=== PATIENT | female | born 1960 | race Caucasian/White ===

== ENCOUNTER 2018-05-08 14:09 | Emergency (ER) | payer MEDICARE, OTHER, SELFPAY ==
[2018-05-08 14:14] VITALS: BP 126/76; PULSE 59; RESP 18; TEMP 36.5; O2SAT 100
[2018-05-08 14:35] VITALS: BP 123/83; PULSE 57; RESP 18; TEMP 36.9; O2SAT 99
--- NOTE | 2018-05-08 14:37 | W.ED.GENAD ---
Discharge Plan Disposition Patient Disposition: HOME Condition: Stable Discharge Details Chief Complaint: Chest Pain Clinical Impression: Chest pain, Axillary lymphadenopathy Primary Care Provider: Jennifer Castillo ED Provider: Krysten Damico Home Meds and New Rx's Prescriptions: Continue duloxetine [Cymbalta] 60 mg Capsule,Delayed Release(Dr/Ec) 60 mg PO DAILY AM RF: 0 ibuprofen 800 mg Tablet 800 mg PO RF: 0 methylphenidate HCl 10 mg Tablet 10 mg PO DAILY RF: 0 omeprazole 20 mg Tablet,Delayed Release (Dr/Ec) RF: 0 Discharge Instructions Instructions: Chest Pain (ED) Additional Instructions: Please return immediately to the emergency department if you develop any new or worsening symptoms or if you become otherwise concerned. It is extremely important that you make an appointment to be seen by your primary care doctor within the next week in follow-up this visit. If you change your mind and you would like us to schedule a stress test, please call [phone]. Referrals: Jennifer Castillo [Primary Care Provider] - Discharge Data Discharge Date/Time-TO BE ENTERED AT DEPARTURE: 05/08/18 21:04 Medical Decision Making Karen Forbes is a 57-year-old woman with history of breast cancer 12 years in the past without sequelae who preseneted to the emergency department with left sided chest pain since yesterday, nonexertional, nonpleuritic, non-positional. On exam patient is very well and nontoxic-appearing. Chest is nontender. She has a negative cardiopulmonary exam. Concern for pericarditis versus PE versus GERD versus musculoskeletal versus other, doubt occult pneumonia, doubt ACS. Exam/history not consistent with acute emergent aortic pathology. Plan for EKG, chest x-ray, screening labs, IV, telemetry. Will monitor and reassess. EKG, CXR okay. D-dimer elevated, plan for CT chest. 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 Discussed importance of outpatient follow-up with regular this finding with patient at length. Repeat EKG, repeat troponin negative. Patient has been pain-free during this emergency department encounter. Lengthy discussion with patient regarding return to emergency department precautions and importance of outpatient follow-up with her PCP, plan for stress test within 72 hours. Patient reports that she does not want to undergo a stress test right now. She states that she would rather have it in a few months when her life is ess hectic. Lengthy discussion with patient regarding risks of not undergoing stress test including and permanent disability. Patient verbalizes understanding, but would still prefer to wait. We will not schedule stress test this at this time. Discussed importance of following up with her primary care doctor within the next 1-2 weeks. She is amenable to the plan Medical Records Medical records reviewed: Yes I reviewed the patient's medical records. Imaging Data Radiologic Study: Attestation: I personally reviewed and interpreted this imaging study as follows: Radiologist's impression: PA AND LATERAL CHEST: The heart is normal in size. The lungs are clear. The mediastinal structures and pleura appear intact. CONCLUSION: Normal chest. CT Chest: FINDINGS: Pulmonary arteries: The aortic size at the level the right main pulmonary artery is 3.5 cm which is within normal limits for age and gender. Aorta: Bolus timing is inadequate for aortic luminal evaluation. Lungs: Hyperinflated lungs without infiltrates consolidations or nodules. Pleural space: Normal. No pneumothorax. No pleural effusion. Heart: Normal. No cardiomegaly. No pericardial effusion. Mediastinum: Small hiatal hernia. Slight prominence of the lower esophageal wall .Clinical correlation. Bones/joints: Bilateral silicone augmentation mammoplasty with grossly intact envelopes. Degenerative changes and spondylosis. Soft tissues: Unremarkable. Lymph nodes: There nonspecific but pathologic bilateral axillary lymphadenopathy left greater than right. Nonspecific hilar and mediastinal lymph nodes IMPRESSION: No PE or acute aortic findings. Bilateral left and right nonspecific but pathologic axillary lymphadenopathy. Please correlate clinically. Lab Data Lab results reviewed: Yes I reviewed the patient's lab results. Laboratory Tests Range/Units 05/08/18 05/08/18 05/08/18 14:56 14:56 14:56 WBC (4.4-10.8) k/cumm 4.68 RBC (4.00-5.20) m/cumm 3.91 L Hgb (12.0-15.5) g/dL 11.7 L Hct (36.0-46.0) % 35.0 L MCV (80-95) fL 89.5 MCH (27.0-33.0) pg 29.9 MCHC (32.0-36.0) g/dL 33.4 RDW (11.7-14.6) % 12.9 Plt Count (130-400) x1000/uL 246 MPV (8.0-11.0) fL 10.3 Immature Gran % 0.2 Neutrophils % 50.6 Lymphocytes % 37.8 Monocytes % 6.2 Eosinophils % 4.1 Basophils % 1.1 Absolute Neutrophils (1.2-6.7) k/cumm 2.37 Absolute Lymphocytes (1.2-3.4) k/cumm 1.77 Absolute Monocytes (0.11-0.7) k/cumm 0.29 Absolute Eosinophils (0.0-0.7) k/cumm 0.19 Absolute Basophils (0.0-0.2) k/cumm 0.05 D-Dimer (<500) ng/mlFEU 1550 H Sodium (136-145) mmol/L 137 Potassium (3.5-5.1) mmol/L 4.1 Chloride (98-107) mmol/L 102 Carbon Dioxide (21.0-32.0) mmol/L 24.3 Anion Gap (3-11) mmol/L 10.7 BUN (7-18) mg/dL 20 H Creatinine (0.55-1.02) mg/dL 0.57 Estimated GFR/1.73 m2 (mL/min/1.73m2) >= 60.00 Glucose (70-100) mg/dL 97 Calcium (8.5-10.1) mg/dL 9.1 Total Bilirubin (0.2-1.0) mg/dL 0.2 AST (15-37) U/L 28 ALT (12-78) U/L 37 Alkaline Phosphatase (46-116) U/L 97 Troponin I (0.00-0.06) ng/mL < 0.02 Total Protein (6.4-8.2) g/dL 6.8 Albumin (3.4-5.0) g/dL 3.7 Range/Units 05/08/ 19:23 WBC (4.4-10.8) k/cumm RBC (4.00-5.20) m/cumm Hgb (12.0-15.5) g/dL Hct (36.0-46.0) % MCV (80-95) fL MCH (27.0-33.0) pg MCHC (32.0-36.0) g/dL RDW (11.7-14.6) % Plt Count (130-400) x1000/uL MPV (8.0-11.0) fL Immature Gran % Neutrophils % Lymphocytes % Monocytes % Eosinophils % Basophils % Absolute Neutrophils (1.2-6.7) k/cumm Absolute Lymphocytes (1.2-3.4) k/cumm Absolute Monocytes (0.11-0.7) k/cumm Absolute Eosinophils (0.0-0.7) k/cumm Absolute Basophils (0.0-0.2) k/cumm D-Dimer (<500) ng/mlFEU Sodium (136-145) mmol/L Potassium (3.5-5.1) mmol/L Chloride (98-107) mmol/L Carbon Dioxide (21.0-32.0) mmol/L Anion Gap (3-11) mmol/L BUN (7-18) mg/dL Creatinine (0.55-1.02) mg/dL Estimated GFR/1.73 m2 (mL/min/1.73m2) Glucose (70-100) mg/dL Calcium (8.5-10.1) mg/dL Total Bilirubin (0.2-1.0) mg/dL AST (15-37) U/L ALT (12-78) U/L Alkaline Phosphatase (46-116) U/L Troponin I (0.00-0.06) ng/mL < 0.02 Total Protein (6.4-8.2) g/dL Albumin (3.4-5.0) g/dL ECG Data Attestation: I personally reviewed and interpreted this ECG (s) as follows: Interpretation: EKG shows sinus bradycardia at 57 with normal axis, no acute ischemic changes, no STEMI. Nondiagnostic EKG EKG shows sinus bradycardia at 57 with normal axis, unchanged from prior HPI General Mode of arrival: ambulatory. Date/Time Provider Initiated Documentation: 05/08/18 14:36. Limitations to Documentation: no limitations. Information obtained by: patient. HPI Narrative: Karen Forbes is a 57-year-old woman with history of breast cancer 12 years in the past without sequelae presenting to the emergency department chest pain. Patient reports that yesterday she noticed dull pain on the left side of her chest. Pain does not radiate. It lasts for seconds at a time, and has been occurring every few hours since yesterday. Patient reports that there does not seem to be any inciting factors: Nonexertional, nonpleuritic, unchanged by eating. There was no trauma. Patient reports that she has never had similar pain in the past. No recent illnesses, no recent travel, has been eating and drinking normally. She denies any other pain, fever, nausea/vomiting/diarrhea, rash, shortness of breath, numbness/tingling. She does report that she feels somewhat weak all over since yesterday, but has been able to go about her activities as usual. Related Data Home Medications Medication Instructions Recorded Confirmed duloxetine [Cymbalta] 60 mg PO DAILY AM 05/08/18 05/08/18 ibuprofen 800 mg PO 05/08/18 methylphenidate HCl 10 mg PO DAILY 05/08/18 05/08/18 omeprazole 05/08/18 Allergies Allergy/AdvReac Type Severity Reaction Status Date / Time No Known Allergies Allergy Unverified 05/08/18 14:19 General Stated Complaint: Chest Pain TEDDY: 2 Review of Systems Review of Systems Constitutional: denies fevers Eyes: denies eye pain ENT: denies facial pain, dental pain, sore throat Cardiovascular: denies edema, reports chest pain Respiratory: denies SOB, cough GI: denies abdominal pain, vomiting, diarrhea : denies flank pain MSK: denies back pain, neck pain, arthralgias, myalgias Skin: denies rash Neuro: denies headaches, lightheadedness, reports mild generalized weakness PFSH Medical History Breast cancer (Chronic) Social History Smoking/Tobacco Use Status: Never Exam Narrative Exam Narrative: Constitutional: well and [id number], pleasant, conversing normally HENT: head atraumatic, normocephalic normal inspection, mucous membranes moist Eyes: conjunctiva normal, sclera normal, pupils 3mm b/l Neck: no stridor, normal ROM, trachea midline Chest: normal inspection, chest NTTP Resp: normal work of breathing, LCTAB Cardio: normal rate, normal rhythm, no murmur appreciated GI: abdomen soft, non-tender, non-distended Back: normal inspection, no rash Skin: warm, dry, normal color, no rash Neuro: alert, not altered, grossly non-focal, normal tone, motor 5/5 throughout Ext: no edema, no posterior calf TTP Psych: normal mood, normal affect, normal behavior Course Vital Signs Temperature 36.5 C 05/08/18 14:14 Pulse 59 L 05/08/18 14:14 Respiratory Rate 18 05/08/18 14:14 Blood Pressure 126/76 05/08/18 14:14 Pulse Oximetry 100 05/08/18 14:14 Temperature 36.9 C 05/08/18 14:35 Temperature Source Temporal Artery Scan 05/08/18 14:35 Pulse 57 L 05/08/18 14:35 Respiratory Rate 18 05/08/18 14:35 Respiratory Effort Non-Labored 05/08/18 14:32 Respiratory Depth Normal 05/08/18 14:32 Respiratory Pattern Normal 05/08/18 14:32 Blood Pressure 123/83 05/08/18 14:35 Blood Pressure Position Sitting 05/08/18 14:14 Pulse Oximetry 99 05/08/18 14:35 Oxygen Delivery Method Room Air 05/08/18 14:35 Oxygen Flow Rate 0 05/08/18 14:35 Pain Level 2 05/08/18 14:14
--- NOTE | 2018-05-08 14:52 | DI.RAD_ITS ---
SYMPTOMS/DIAGNOSIS: CHEST PAIN PA AND LATERAL CHEST: The heart is normal in size. The lungs are clear. The mediastinal structures and pleura appear intact. CONCLUSION: Normal chest.
[2018-05-08] MEDS: Aspirin 81 MG CHEW 324 MG CH (15:02)
--- NOTE | 2018-05-08 15:02 | ED.GENADUL_ITS ---
Discharge Plan Disposition Patient Disposition: HOME Condition: Stable Discharge Details Chief Complaint: Chest Pain Clinical Impression: Chest pain, Axillary lymphadenopathy Primary Care Provider: Jennifer Castillo ED Provider: Krysten Damico Home Meds and New Rx's Prescriptions: Continue duloxetine [Cymbalta] 60 mg Capsule,Delayed Release(Dr/Ec) 60 mg PO DAILY AM RF: 0 ibuprofen 800 mg Tablet 800 mg PO RF: 0 methylphenidate HCl 10 mg Tablet 10 mg PO DAILY RF: 0 omeprazole 20 mg Tablet,Delayed Release (Dr/Ec) RF: 0 Discharge Instructions Instructions: Chest Pain (ED) Additional Instructions: Please return immediately to the emergency department if you develop any new or worsening symptoms or if you become otherwise concerned. It is extremely important that you make an appointment to be seen by your primary care doctor within the next week in follow-up this visit. If you change your mind and you would like us to schedule a stress test, please call [phone]. Referrals: Jennifer Castillo [Primary Care Provider] - Discharge Data Discharge Date/Time-TO BE ENTERED AT DEPARTURE: 05/08/18 21:04 Medical Decision Making Karen Forbes is a 57-year-old woman with history of breast cancer 12 years in the past without sequelae who preseneted to the emergency department with left sided chest pain since yesterday, nonexertional, nonpleuritic, non- positional. On exam patient is very well and nontoxic-appearing. Chest is nontender. She has a negative cardiopulmonary exam. Concern for pericarditis versus PE versus GERD versus musculoskeletal versus other, doubt occult pneumonia, doubt ACS. Exam/history not consistent with acute emergent aortic pathology. Plan for EKG, chest x-ray, screening labs, IV, telemetry. Will monitor and reassess. EKG, CXR okay. D-dimer elevated, plan for CT chest. 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 Discussed importance of outpatient follow-up with regular this finding with patient at length. Repeat EKG, repeat troponin negative. Patient has been pain-free during this emergency department encounter. Lengthy discussion with patient regarding return to emergency department precautions and importance of outpatient follow-up with her PCP, plan for stress test within 72 hours. Patient reports that she does not want to undergo a stress test right now. She states that she would rather have it in a few months when her life is ess hectic. Lengthy discussion with patient regarding risks of not undergoing stress test including and permanent disability. Patient verbalizes understanding, but would still prefer to wait. We will not schedule stress test this at this time. Discussed importance of following up with her primary care doctor within the next 1-2 weeks. She is amenable to the plan Medical Records Medical records reviewed: Yes I reviewed the patient's medical records. Imaging Data Radiologic Study: Attestation: I personally reviewed and interpreted this imaging study as follows: Radiologist's impression: PA AND LATERAL CHEST: The heart is normal in size. The lungs are clear. The mediastinal structures and pleura appear intact. CONCLUSION: Normal chest. CT Chest: FINDINGS: Pulmonary arteries: The aortic size at the level the right main pulmonary artery is 3.5 cm which is within normal limits for age and gender. Aorta: Bolus timing is inadequate for aortic luminal evaluation. Lungs: Hyperinflated lungs without infiltrates consolidations or nodules. Pleural space: Normal. No pneumothorax. No pleural effusion. Heart: Normal. No cardiomegaly. No pericardial effusion. Mediastinum: Small hiatal hernia. Slight prominence of the lower esophageal wall .Clinical correlation. Bones/joints: Bilateral silicone augmentation mammoplasty with grossly intact envelopes. Degenerative changes and spondylosis. Soft tissues: Unremarkable. Lymph nodes: There nonspecific but pathologic bilateral axillary lymphadenopathy left greater than right. Nonspecific hilar and mediastinal lymph nodes IMPRESSION: No PE or acute aortic findings. Bilateral left and right nonspecific but pathologic axillary lymphadenopathy. Please correlate clinically. Lab Data Lab results reviewed: Yes I reviewed the patient's lab results. Laboratory Tests Range/Units 05/08/18 05/08/18 05/08/18 14:56 14:56 14:56 WBC (4.4-10.8) k/cumm 4.68 RBC (4.00-5.20) m/cumm 3.91 L Hgb (12.0-15.5) g/dL 11.7 L Hct (36.0-46.0) % 35.0 L MCV (80-95) fL 89.5 MCH (27.0-33.0) pg 29.9 MCHC (32.0-36.0) g/dL 33.4 RDW (11.7-14.6) % 12.9 Plt Count (130-400) x1000/uL 246 MPV (8.0-11.0) fL 10.3 Immature Gran % 0.2 Neutrophils % 50.6 Lymphocytes % 37.8 Monocytes % 6.2 Eosinophils % 4.1 Basophils % 1.1 Absolute Neutrophils (1.2-6.7) k/cumm 2.37 Absolute Lymphocytes (1.2-3.4) k/cumm 1.77 Absolute Monocytes (0.11-0.7) k/cumm 0.29 Absolute Eosinophils (0.0-0.7) k/cumm 0.19 Absolute Basophils (0.0-0.2) k/cumm 0.05 D-Dimer (<500) ng/mlFEU 1550 H Sodium (136-145) mmol/L 137 Potassium (3.5-5.1) mmol/L 4.1 Chloride (98-107) mmol/L 102 Carbon Dioxide (21.0-32.0) mmol/L 24.3 Anion Gap (3-11) mmol/L 10.7 BUN (7-18) mg/dL 20 H Creatinine (0.55-1.02) mg/dL 0.57 Estimated GFR/1.73 m2 (mL/min/1.73m2) >= 60.00 Glucose (70-100) mg/dL 97 Calcium (8.5-10.1) mg/dL 9.1 Total Bilirubin (0.2-1.0) mg/dL 0.2 AST (15-37) U/L 28 ALT (12-78) U/L 37 Alkaline Phosphatase (46-116) U/L 97 Troponin I (0.00-0.06) ng/mL < 0.02 Total Protein (6.4-8.2) g/dL 6.8 Albumin (3.4-5.0) g/dL 3.7 Range/Units 05/08/ 19:23 WBC (4.4-10.8) k/cumm RBC (4.00-5.20) m/cumm Hgb (12.0-15.5) g/dL Hct (36.0-46.0) % MCV (80-95) fL MCH (27.0-33.0) pg MCHC (32.0-36.0) g/dL RDW (11.7-14.6) % Plt Count (130-400) x1000/uL MPV (8.0-11.0) fL Immature Gran % Neutrophils % Lymphocytes % Monocytes % Eosinophils % Basophils % Absolute Neutrophils (1.2-6.7) k/cumm Absolute Lymphocytes (1.2-3.4) k/cumm Absolute Monocytes (0.11-0.7) k/cumm Absolute Eosinophils (0.0-0.7) k/cumm Absolute Basophils (0.0-0.2) k/cumm D-Dimer (<500) ng/mlFEU Sodium (136-145) mmol/L Potassium (3.5-5.1) mmol/L Chloride (98-107) mmol/L Carbon Dioxide (21.0-32.0) mmol/L Anion Gap (3-11) mmol/L BUN (7-18) mg/dL Creatinine (0.55-1.02) mg/dL Estimated GFR/1.73 m2 (mL/min/1.73m2) Glucose (70-100) mg/dL Calcium (8.5-10.1) mg/dL Total Bilirubin (0.2-1.0) mg/dL AST (15-37) U/L ALT (12-78) U/L Alkaline Phosphatase (46-116) U/L Troponin I (0.00-0.06) ng/mL < 0.02 Total Protein (6.4-8.2) g/dL Albumin (3.4-5.0) g/dL ECG Data Attestation: I personally reviewed and interpreted this ECG (s) as follows: Interpretation: EKG shows sinus bradycardia at 57 with normal axis, no acute ischemic changes, no STEMI. Nondiagnostic EKG EKG shows sinus bradycardia at 57 with normal axis, unchanged from prior HPI General Mode of arrival: ambulatory . Date/Time Provider Initiated Documentation: 05/08/18 14:36 . Limitations to Documentation: no limitations . Information obtained by: patient . HPI Narrative: Karen Forbes is a 57-year-old woman with history of breast cancer 12 years in the past without sequelae presenting to the emergency department chest pain. Patient reports that yesterday she noticed dull pain on the left side of her chest. Pain does not radiate. It lasts for seconds at a time, and has been occurring every few hours since yesterday. Patient reports that there does not seem to be any inciting factors: Nonexertional, nonpleuritic , unchanged by eating. There was no trauma. Patient reports that she has never had similar pain in the past. No recent illnesses, no recent travel, has been eating and drinking normally. She denies any other pain, fever, nausea/ vomiting/diarrhea, rash, shortness of breath, numbness/tingling. She does report that she feels somewhat weak all over since yesterday, but has been able to go about her activities as usual. Related Data Home Medications Medication Instructions Recorded Confirmed duloxetine [Cymbalta] 60 mg PO DAILY AM 05/08/18 05/08/18 ibuprofen 800 mg PO 05/08/18 methylphenidate HCl 10 mg PO DAILY 05/08/18 05/08/18 omeprazole 05/08/18 Allergies Allergy/AdvReac Type Severity Reaction Status Date / Time No Known Allergies Allergy Unverified 05/08/18 14:19 General Stated Complaint: Chest Pain TEDDY: 2 Review of Systems Review of Systems Constitutional: denies fevers Eyes: denies eye pain ENT: denies facial pain, dental pain, sore throat Cardiovascular: denies edema, reports chest pain Respiratory: denies SOB, cough GI: denies abdominal pain, vomiting, diarrhea : denies flank pain MSK: denies back pain, neck pain, arthralgias, myalgias Skin: denies rash Neuro: denies headaches, lightheadedness, reports mild generalized weakness PFSH Medical History Breast cancer (Chronic) Social History Smoking/Tobacco Use Status: Never Exam Narrative Exam Narrative: Constitutional: well and [id number], pleasant, conversing normally HENT: head atraumatic, normocephalic normal inspection, mucous membranes moist Eyes: conjunctiva normal, sclera normal, pupils 3mm b/l Neck: no stridor, normal ROM, trachea midline Chest: normal inspection, chest NTTP Resp: normal work of breathing, LCTAB Cardio: normal rate, normal rhythm, no murmur appreciated GI: abdomen soft, non-tender, non-distended Back: normal inspection, no rash Skin: warm, dry, normal color, no rash Neuro: alert, not altered, grossly non-focal, normal tone, motor 5/5 throughout Ext: no edema, no posterior calf TTP Psych: normal mood, normal affect, normal behavior Course Vital Signs Temperature 36.5 C 05/08/18 14:14 Pulse 59 L 05/08/18 14:14 Respiratory Rate 18 05/08/18 14:14 Blood Pressure 126/76 05/08/18 14:14 Pulse Oximetry 100 05/08/18 14:14 Temperature 36.9 C 05/08/18 14:35 Temperature Source Temporal Artery Scan 05/08/18 14:35 Pulse 57 L 05/08/18 14:35 Respiratory Rate 18 05/08/18 14:35 Respiratory Effort Non-Labored 05/08/18 14:32 Respiratory Depth Normal 05/08/18 14:32 Respiratory Pattern Normal 05/08/18 14:32 Blood Pressure 123/83 05/08/18 14:35 Blood Pressure Position Sitting 05/08/18 14:14 Pulse Oximetry 99 05/08/18 14:35 Oxygen Delivery Method Room Air 05/08/18 14:35 Oxygen Flow Rate 0 05/08/18 14:35 Pain Level 2 05/08/18 14:14
[2018-05-08 15:05] LABS: Abs Immature Grans 0.01 k/cumm (0.0-0.09); Absolute Basophil Count 0.05 k/cumm (0.0-0.2); Absolute Eosinophil Count 0.19 k/cumm (0.0-0.7); Absolute Lymphocyte Count 1.77 k/cumm (1.2-3.4); Absolute Monocyte Count 0.29 k/cumm (0.11-0.7); Absolute Neutrophil Count 2.37 k/cumm (1.2-6.7); Basophils % 1.1; Eosinophils % 4.1; HGB 11.7 g/dL (12.0-15.5); Immature Grans % 0.2; Lymphocytes % 37.8; Mean Corp. HGB Concentration 33.4 g/dL (32.0-36.0); Mean Corpuscular Hemoglobin 29.9 pg (27.0-33.0); Mean Corpuscular Volume 89.5 fL (80-95); Mean Platelet Volume 10.3 fL (8.0-11.0); Monocytes % 6.2; Neutrophils % 50.6; Platelet Count 246 x1000/uL (130-400); RBC 3.91 m/cumm (4.00-5.20); RBC Distribution Width 12.9 % (11.7-14.6); White Blood Cell Count 4.68 k/cumm (4.4-10.8)
[2018-05-08 15:20] LABS: ALT 37 U/L (12-78); AST 28 U/L (15-37); Albumin 3.7 g/dL (3.4-5.0); Alkaline Phosphatase 97 U/L (46-116); Anion Gap 10.7 mmol/L (3-11); BUN 20 mg/dL (7-18); Bilirubin, Total 0.2 mg/dL (0.2-1.0); CO2 24.3 mmol/L (21.0-32.0); CREATININE 0.57 mg/dL (0.55-1.02); Calcium 9.1 mg/dL (8.5-10.1); Chloride 102 mmol/L (98-107); Glucose 97 mg/dL (70-100); Potassium 4.1 mmol/L (3.5-5.1); Sodium 137 mmol/L (136-145); Total Protein 6.8 g/dL (6.4-8.2)
[2018-05-08 15:21] LABS: Troponin I < 0.02 ng/mL (0.00-0.06)
[2018-05-08 15:35] LABS: D-Dimer 1550 ng/mlFEU (<500)
--- NOTE | 2018-05-08 17:32 | DI.CT_ITS ---
SYMPTOM/DIAGNOSIS: CHEST PAIN PE CHEST CT: CT angiography was performed with multi slice acquisition and multi planar and 3D reconstruction. The study was conducted with an intravenous administration of 100 cc's of Omnipaque 350. There is no evidence of pulmonary embolic disease. There is no aortic aneurysm. The bolus timing on this patient is inadequate for luminal evaluation. Pulmonary hyperinflation is noted without consolidation or nodules. There is no pleural effusion or pneumothorax. The heart is not enlarged. A small hiatus hernia is demonstrated. Bilateral axillary lymphadenopathy is demonstrated, left greater than right. There is no evidence of hilar or mediastinal adenopathy. SUMMARY: No evidence of pulmonary embolic disease. No acute findings are seen. Note is made of bilateral, left greater than right, axillary lymphadenopathy. The findings to be correlated with the patient's clinical status.
[2018-05-08] MEDS: Omnipaque 350 MG/ML 100 ML BTL IJ (17:33)
--- NOTE | 2018-05-08 18:07 | DI.VRAD_ITS ---
EXAM: CT Angiography Chest With Intravenous Contrast EXAM DATE/TIME: 05/08/2018 4:13 PM CLINICAL HISTORY: 57 years old, female; Pain; Chest pain TECHNIQUE: Axial computed tomographic angiography images of the chest with intravenous contrast using CT angiography protocol. Coronal and sagittal reformatted images were created and reviewed. MIP reconstructed images were created and reviewed. CONTRAST: 100 ml of Omnipaque 350 administered intravenously. COMPARISON: CR XR CHEST 2V PA LATERAL 05/08/2018 3:10 PM FINDINGS: Pulmonary arteries: The aortic size at the level the right main pulmonary artery is 3.5 cm which is within normal limits for age and gender. Aorta: Bolus timing is inadequate for aortic luminal evaluation. Lungs: Hyperinflated lungs without infiltrates consolidations or nodules. Pleural space: Normal. No pneumothorax. No pleural effusion. Heart: Normal. No cardiomegaly. No pericardial effusion. Mediastinum: Small hiatal hernia. Slight prominence of the lower esophageal wall .Clinical correlation. Bones/joints: Bilateral silicone augmentation mammoplasty with grossly intact envelopes. Degenerative changes and spondylosis. Soft tissues: Unremarkable. Lymph nodes: There nonspecific but pathologic bilateral axillary lymphadenopathy left greater than right. Nonspecific hilar and mediastinal lymph nodes IMPRESSION: No PE or acute aortic findings. Bilateral left and right nonspecific but pathologic axillary lymphadenopathy. Please correlate clinically. Dictated and Authenticated by: Tiffani Sears MD. Ordering:EARLINE SHEIKH MD
[2018-05-08 20:20] LABS: Troponin I < 0.02 ng/mL (0.00-0.06)
[2018-05-08 21:03] VITALS: BP 112/80; PULSE 80; RESP 18; TEMP 36.8; O2SAT 99
== END 2018-05-08 21:04 | disposition home or self-care (01) ==
PROVIDERS: Emergency Provider Student in an Organized Health Care Education/Training Program; PCP Nurse Practitioner Family
DX: R07.89 Other chest pain (principal); R59.0 Localized enlarged lymph nodes; R79.1 Abnormal coagulation profile
CPT/HCPCS: 36415; 71275; 80053; 99285; 71046; 84484; 85025; 85379; 99284; J3490

== ENCOUNTER 2019-04-09 13:06 | Outpatient (CLI) | payer MEDICARE, OTHER, SELFPAY ==
[2019-04-10 10:58] LABS: HCT 40.4 % (36.0-46.0); HGB 13.1 g/dL (12.0-15.5); Mean Corp. HGB Concentration 32.4 g/dL (32.0-36.0); Mean Corpuscular Hemoglobin 29.9 pg (27.0-33.0); Mean Corpuscular Volume 92.2 fL (80-95); Mean Platelet Volume 10.2 fL (8.0-11.0); Platelet Count 251 x1000/uL (130-400); RBC 4.38 m/cumm (4.00-5.20); White Blood Cell Count 4.41 k/cumm (4.4-10.8)
[2019-04-10 12:14] LABS: ESR 10 mm/hr (0-30)
== END 2019-04-09 13:26 ==
PROVIDERS: PCP Physician Assistant Medical; Visit Provider Physician Assistant Medical
DX: M25.579 Pain in unspecified ankle and joints of unspecified foot (principal); R14.0 Abdominal distension (gaseous)
CPT/HCPCS: 36415; 85027; 85652

== ENCOUNTER → 2020-10-07 08:57 | Outpatient (BNVA) | payer MEDICARE, OTHER, SELFPAY | PROVIDERS: PCP Physician Assistant Medical; Referring Provider Physician Assistant Medical; Visit Provider Student in an Organized Health Care Education/Training Program | DX: M25.552 Pain in left hip (principal); G89.29 Other chronic pain; Z96.642 Presence of left artificial hip joint; Z87.81 Personal history of (healed) traumatic fracture | CPT/HCPCS: 99214 ==

== ENCOUNTER 2020-10-13 01:33 | Outpatient (CLI) | payer MEDICARE, OTHER, SELFPAY ==
--- NOTE | 2020-10-13 07:15 | DI.NM_ITS ---
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 scan was performed CR XR HIP MIN 2V LT from 08/11/2020 FINDINGS: There is a photopenic zone in the left hip consistent with prosthesis. There does not appear to be s ignificant abnormal uptake in this region to suggest loosening nor obvious osteomyelitis. Also no si gnificant abnormal uptake seen in the opposite-right hip. There is increased uptake seen in the upper sacrum which is site of fusion screws. Mild increased up take is seen in the left side of L5 vertebral body which corresponds with some degenerative change se en on the CT images. There is also significant anterolisthesis of L5 upon S1 and disc space narrowin g at L5-S1 level. The fusion is at L5-S1 level including posterior rods and bilateral intrapedicular screws. There is focal uptake seen in a midthoracic vertebral body which is above the level of the CT images. This is approximately the T6 or T7 level. An no abnormal uptake seen in the rib cages nor in the s houlder girdles nor in the skull. Abnormal uptake pattern in the distal left humerus is noted which is of the which requires plain films. No abnormal uptake seen in the right humerus. Uptake seen in the right form is probably related to injection site. There is abnormal uptake seen in lower right leg tibia metaphysis just lateral to the tibial tubercle . Also mild focal increased uptake seen at the mid aspect right tibia and in the region of the right tibial plateau formed. Also some degenerative uptake seen in the right foot. IMPRESSION: 1. No obvious evidence of loosening around the left hip prosthesis. 2. Abnormal findings in the lower lumbar spine which are probably related to the fusion and L5-S1 lis thesis at this level. There is no abnormal uptake in the sacroiliac joints. 3. Increased focal uptake in a midthoracic vertebral body which is probably T6 or T7 superior endplat e, probably indicating an element of fracture at this level. Recommend follow-up plain films or CT a t this level. The present coregistered CT scan was of the lower lumbar spine and pelvis only. 4. Abnormal uptake seen in the right lower extremity tibia proximally and distally as well as in the right foot midfoot level. Recommend plain films right lower leg right ankle-foot.
== END 2020-10-13 01:53 ==
PROVIDERS: PCP Physician Assistant Medical; Visit Provider Student in an Organized Health Care Education/Training Program
DX: M25.552 Pain in left hip (principal); Z96.642 Presence of left artificial hip joint; G89.29 Other chronic pain; R93.6 Abnormal findings on diagnostic imaging of limbs
CPT/HCPCS: 78315

== ENCOUNTER → 2020-11-22 12:52 | Outpatient (BNVA) | payer MEDICARE, OTHER, SELFPAY | PROVIDERS: PCP Physician Assistant Medical; Referring Provider Physician Assistant Medical; Visit Provider Student in an Organized Health Care Education/Training Program ==

== ENCOUNTER 2021-03-30 21:26 | Outpatient (CLI) | payer MEDICARE, OTHER, SELFPAY ==
--- NOTE | 2021-03-30 15:10 | DI.RAD_ITS ---
Exam(s) XR ANKLE RT COMPLETE EXAM: XR ANKLE RT COMPLETE CLINICAL HISTORY: CELLULITIS,L03.90. TECHNIQUE: 2D digital imaging was performed. COMPARISON: [facility]: BONES: No acute fracture is present. No bony destructive lesion is seen. There are old fractures of the distal tibia and fibula. Hardware is in place in the distal tibia. JOINTS: The ankle mortise is normally aligned. SOFT TISSUE: No foreign body or abnormal gas collection. IMPRESSION: Old distal tibial and fibular fracture deformities. DATA REPOSITORY: RADIATION DOSE DELIVERED:
== END 2021-03-30 21:46 ==
PROVIDERS: PCP Physician Assistant Medical; Visit Provider Registered Nurse
DX: L03.90 Cellulitis, unspecified (principal)
CPT/HCPCS: 73610

== ENCOUNTER 2024-11-19 12:29 | Outpatient (CLI) | payer MEDICARE, OTHER, BC, SELFPAY ==
--- NOTE | 2024-11-19 | DI.RAD_ITS ---
Exam(s) XR FOOT RT COMPLETE EXAM: XR FOOT RT COMPLETE CLINICAL HISTORY: PAIN IN RT FOOT M79.671 SOFT TISSUE DISORDER M79.89. TECHNIQUE: 2D digital imaging was performed of the right foot. Three images were obtained. AP, obl ique and lateral views were obtained. COMPARISON: CR XR ANKLE RT COMPLETE from 03/30/2021 FINDINGS: BONES: No acute fracture is present. No bony destructive lesion is seen. There is a small enthesophyt e at the posterior calcaneus. The bones are osteopenic. The distal aspect of the sideplate screws a re seen in the distal tibia. These were present on the prior examination. JOINTS: No dislocation present. The joint spaces are well maintained. SOFT TISSUE: Normal. IMPRESSION: 1. No acute abnormality. 2. Osteopenia. 3. Postsurgical changes seen in the distal tibia. DATA REPOSITORY: RADIATION DOSE DELIVERED:
== END 2024-11-19 12:49 ==
PROVIDERS: PCP Physician Assistant Medical; Visit Provider Physician Assistant Medical
DX: M79.671 Pain in right foot (principal); M85.89 Other specified disorders of bone density and structure, multiple sites; Z98.890 Other specified postprocedural states
CPT/HCPCS: 73630